=== PATIENT | male | born 1955 | race Caucasian/White ===

== ENCOUNTER 2025-03-14 14:17 | Emergency (ER) | payer SELFPAY ==
[~2025-03-14] VITALS: Ht 177.8 cm; Wt 81.0 kg
[2025-03-14 14:19] VITALS: O2SAT 98
[2025-03-14 15:58] LABS: CHLORIDE 101 mEq/L (98-107); POTASSIUM 2.9 mEq/L (3.5-5.1); SODIUM 137 mEq/L (136-145)
[2025-03-14 16:00] LABS: CALCIUM 8.6 mg/dL (8.7-10.4); CARBON DIOXIDE 25 mEq/L (21-32)
[2025-03-14] MEDS: HALOPERIDOL LACTATE 5MG/ML VIAL IM ONE (16:02)
[2025-03-14 16:05] LABS: CREATININE 1.5 mg/dL (0.6-1.3); ETHANOL BLOOD 300 mg/dL (<10); GLUCOSE 171 mg/dL (70-105); UREA NITROGEN BLOOD 10 mg/dL (9-23)
[2025-03-14 16:06] LABS: ALANINE AMINOTRANSFERASE 60 IU/L (10-49); ALBUMIN 4.1 g/dL (3.2-4.8); ASPARTATE AMINOTRANSFERASE 118 IU/L (<34)
[2025-03-14 16:07] LABS: BILIRUBIN DIRECT 0.2 mg/dL (<=3.0); BILIRUBIN TOTAL 0.4 mg/dL (0.1-1.0); PROTEIN TOTAL 7.5 g/dL (6.0-8.3)
[2025-03-14 16:11] LABS: BASOPHILS % 0.6 % (0.0-2.0); EOSINOPHILS % 1.7 % (0.0-5.0); HEMATOCRIT. 39.1 % (42.0-52.0); HEMOGLOBIN. 13.1 g/dL (14.0-18.0); LYMPHOCYTES % 45.7 % (20.0-50.0); MEAN CORPUSCULAR HGB CONC 33.5 g/dL (31.0-37.0); MEAN CORPUSCULAR VOLUME 95.6 fL (80.0-94.0); MONOCYTES % 8.6 % (2.0-8.0); NEUTROPHILS % 43.4 % (40.0-76.0); PLATELET 188 x1000/uL (130-400); RED BLOOD CELL COUNT 4.09 mill/uL (4.7-6.1); WHITE BLOOD COUNT 5.2 x1000/uL (4.5-11.0)
[2025-03-14 16:33] VITALS: TEMP 36.5
[2025-03-14 18:41] LABS: *AMPHETAMINES SCREEN URINE NEGATIVE (NEGATIVE); *BENZODIAZEPINES SCREEN URINE NEGATIVE (NEGATIVE)
[2025-03-14 18:42] LABS: *BARBITURATES SCREEN URINE NEGATIVE (NEGATIVE); *COCAINE SCREEN URINE NEGATIVE (NEGATIVE); CANNABINOID URINE SCREEN NEGATIVE (NEGATIVE); ECSTASY MDMA SCREEN URINE NEGATIVE (NEGATIVE); METHADONE URINE SCREEN NEGATIVE (NEGATIVE); OPIATES URINE SCREEN NEGATIVE (NEGATIVE); PHENCYCLIDINE URINE SCREEN NEGATIVE (NEGATIVE)
[2025-03-14 21:54] VITALS: BP 177/87; PULSE 80; RESP 18; O2SAT 95
[2025-03-14] MEDS: POTASSIUM CHLORIDE 20MEQ TABLET SR PO ONE (22:07)
== END 2025-03-14 22:17 | disposition home or self-care (01) ==
LOC: ER 14:17
DX: S00.91XA Abrasion of unspecified part of head, initial encounter (principal); F10.10 Alcohol abuse, uncomplicated; E87.6 Hypokalemia; E11.9 Type 2 diabetes mellitus without complications; R51.9 Headache, unspecified; W19.XXXA Unspecified fall, initial encounter; Y93.89 Activity, other specified; Y92.89 Other specified places as the place of occurrence of the external cause; Y99.8 Other external cause status; Y90.8 Blood alcohol level of 240 mg/100 ml or more
CPT/HCPCS: 80076; 80305; 80048; 80320; 85025; 36415; 70450; 96372; 99285; J1630; G0480

== ENCOUNTER 2025-03-26 20:28 | Inpatient (IN) | payer OTHER ==
[~2025-03-26] VITALS: Ht 175.3 cm; Wt 83.0 kg
[2025-03-26 21:23] LABS: HEMATOCRIT 38.3 % (42.0-52.0); HEMOGLOBIN 12.8 g/dL (14.0-18.0); MEAN CORPUSCULAR HEMOGLOBIN 32.6 pg (28.0-32.0); MEAN CORPUSCULAR HGB CONC 33.4 g/dL (31.0-37.0); MEAN CORPUSCULAR VOLUME 97.7 fL (80.0-94.0); PLATELET 244 x1000/uL (130-400); RED BLOOD CELL COUNT 3.92 mill/uL (4.7-6.1); RED CELL DISTRIBUTION WIDTH 16.2 % (11.6-14.6); WHITE BLOOD COUNT 5.5 x1000/uL (4.5-11.0)
[2025-03-26 21:30] LABS: POTASSIUM 3.7 mEq/L (3.5-5.1)
[2025-03-26 21:32] LABS: CALCIUM 8.5 mg/dL (8.7-10.4)
[2025-03-26 21:36] LABS: CREATININE 1.4 mg/dL (0.6-1.3)
[2025-03-26] MEDS: SODIUM CHLORIDE 0.9% 1,000 ML IV ONE (21:52)
[2025-03-27] VITALS (7 sets, daily range): BP systolic 152–198; BP diastolic 68–102; PULSE 78–117; RESP 19–20; TEMP 36.2–37.8; O2SAT 95–99
[2025-03-27] MEDS ORDERED: IPRATROPIUM/ALBUTEROL 0.5-3(2.5)MG/3ML NEB HHN PRN (00:30)
[2025-03-27] MEDS ORDERED: HYDRALAZINE 20MG/ML VIAL IV PRN (00:30)
[2025-03-27] MEDS ORDERED: GUAIFENESIN 200MG/10ML SUGAR FREE UDC PO PRN (00:30)
[2025-03-27] MEDS ORDERED: ONDANSETRON HCL 4MG/2ML INJ IV PRN (00:30)
[2025-03-27] MEDS ORDERED: LORAZEPAM 2MG/ML INJ IV PRN (00:30)
[2025-03-27] MEDS ORDERED: ACETAMINOPHEN 325MG TABLET PO PRN (00:30)
[2025-03-27] MEDS ORDERED: MAGNESIUM/ALUMINUM HYDROXIDE/SIMETHICONE 30ML UDC PO PRN (00:30)
[2025-03-27] MEDS ORDERED: DOCUSATE SODIUM 100MG CAPSULE PO PRN (00:30)
[2025-03-27] MEDS ORDERED: DEXTROSE 50% WATER 50ML SYRINGE IV PRN (00:45)
[2025-03-27] MEDS ORDERED: HYDRALAZINE 10 MG in SODIUM CHLORIDE 0.9% 49.5 ML IV PRN (00:45)
[2025-03-27] MEDS ORDERED: LORAZEPAM 2MG/ML UD SYRINGE IV PRN (00:45)
[2025-03-27] MEDS: MVI, ADULT NO.1 10 ML, FOLIC ACID 1 MG, THIAMINE HCL 100 MG in SODIUM CHLORIDE 0.9% 1,0... IV SCH (02:13)
[2025-03-27 06:23] LABS: TROPONIN I HIGH SENSITIVITY 16 ng/L (3.0-53)
[2025-03-27] MEDS: BLOOD SUGAR DIAGNOSTIC STRIP TEST SCH (06:26)
[2025-03-27 06:27] LABS: CREATINE KINASE 245 IU/L (46-171); PHOSPHORUS 2.7 mg/dL (2.5-4.9)
[2025-03-27] MEDS: INSULIN LISPRO 100 UNITS/ML SUBCUT SCH (07:40)
[2025-03-27] MEDS ORDERED: LORAZEPAM 1MG TABLET PO PRN ×2 (08:00)
[2025-03-27] MEDS ORDERED: CHLORDIAZEPOXIDE 25MG CAPSULE PO PRN ×2 (08:00)
[2025-03-27] MEDS ORDERED: PHENOBARBITAL 30 MG TABLET PO PRN ×3 (08:00→10:00)
[2025-03-27] MEDS ORDERED: FOLIC ACID 1MG TABLET PO SCH (09:00)
[2025-03-27] MEDS: SODIUM CHLORIDE 0.9% 500 ML IV ONE (09:00)
[2025-03-27] MEDS: PANTOPRAZOLE SODIUM 40 MG/VIAL IV SCH (09:32)
[2025-03-27] MEDS: CLONIDINE 0.1MG TABLET PO PRN (09:33)
[2025-03-27] MEDS: THIAMINE HCL 100MG TABLET PO SCH (09:33)
[2025-03-27] MEDS ORDERED: PHENOBARBITAL 60MG TABLET PO PRN (10:00)
[2025-03-27] MEDS: THIAMINE HCL 100 MG/1 ML 2ML VIAL IM SCH (10:41)
[2025-03-27] MEDS: MAGNESIUM 4 G PREMIX 100 ML IV NR (12:27)
[2025-03-27] MEDS: AMLODIPINE 10MG TABLET PO SCH (12:27)
[2025-03-27] MEDS: CHLORDIAZEPOXIDE 25MG CAPSULE PO PRN (18:55)
[2025-03-27] MEDS: LORAZEPAM 1MG TABLET PO PRN (18:55)
[2025-03-27 22:43] LABS: ALANINE AMINOTRANSFERASE 56 IU/L (10-49); ALBUMIN 3.7 g/dL (3.2-4.8); ASPARTATE AMINOTRANSFERASE 70 IU/L (<34); BILIRUBIN DIRECT 0.3 mg/dL (<=3.0); BILIRUBIN TOTAL 0.8 mg/dL (0.1-1.0); CREATINE KINASE 352 IU/L (46-171); PROTEIN TOTAL 6.8 g/dL (6.0-8.3); TROPONIN I HIGH SENSITIVITY 19 ng/L (3.0-53)
[2025-03-28] VITALS: BP 146/84; PULSE 85; RESP 20; TEMP 36.7; O2SAT 95
[2025-03-28 04:00] VITALS: BP 167/82; PULSE 69; RESP 20; TEMP 38; O2SAT 97
[2025-03-28] MEDS: ACETAMINOPHEN 325MG TABLET PO PRN (04:20)
[2025-03-28 06:42] LABS: BASOPHILS % 0.3 % (0.0-2.0); CHLORIDE 105 mEq/L (98-107); EOSINOPHILS % 0.5 % (0.0-5.0); HEMATOCRIT. 33.7 % (42.0-52.0); HEMOGLOBIN. 11.4 g/dL (14.0-18.0); LYMPHOCYTES % 21.2 % (20.0-50.0); MEAN CORPUSCULAR HEMOGLOBIN 32.5 pg (28.0-32.0); MEAN CORPUSCULAR HGB CONC 33.7 g/dL (31.0-37.0); MEAN CORPUSCULAR VOLUME 96.7 fL (80.0-94.0); MEAN PLATELET VOLUME 8.8 fl (7.4-10.4); MONOCYTES % 7.1 % (2.0-8.0); NEUTROPHILS % 70.9 % (40.0-76.0); PLATELET 172 x1000/uL (130-400); POTASSIUM 3.5 mEq/L (3.5-5.1); RED BLOOD CELL COUNT 3.49 mill/uL (4.7-6.1); RED CELL DISTRIBUTION WIDTH 15.7 % (11.6-14.6); SODIUM 140 mEq/L (136-145); WHITE BLOOD COUNT 5.4 x1000/uL (4.5-11.0)
[2025-03-28 06:43] LABS: CALCIUM 8.2 mg/dL (8.7-10.4); CARBON DIOXIDE 26 mEq/L (21-32)
[2025-03-28 06:47] LABS: TRIGLYCERIDE 81 mg/dL (0-150)
[2025-03-28 06:48] LABS: CREATININE 1.2 mg/dL (0.6-1.3); GLUCOSE 146 mg/dL (70-105); UREA NITROGEN BLOOD 14 mg/dL (9-23)
[2025-03-28 06:49] LABS: ALANINE AMINOTRANSFERASE 48 IU/L (10-49); ASPARTATE AMINOTRANSFERASE 60 IU/L (<34); LDL CHOLESTEROL 68 mg/dL (5-100)
[2025-03-28 06:50] LABS: ALBUMIN 3.9 g/dL (3.2-4.8); BILIRUBIN DIRECT 0.4 mg/dL (<=3.0); BILIRUBIN TOTAL 1.2 mg/dL (0.1-1.0); CHOLESTEROL 163 mg/dL (<200); HDL CHOLESTEROL 75 mg/dL (>55); PROTEIN TOTAL 6.6 g/dL (6.0-8.3)
[2025-03-28 08:00] VITALS: BP 142/77; PULSE 61; RESP 18; TEMP 36.2; O2SAT 97
[2025-03-28] MEDS: FOLIC ACID 1MG TABLET PO SCH (08:30)
[2025-03-28] MEDS: MULTIVITAMINS,THER W-MINERALS TABLET PO SCH (08:31)
[2025-03-28 12:00] VITALS: BP 153/68; PULSE 70; RESP 18; TEMP 36.8; O2SAT 96
[2025-03-28] MEDS ORDERED: AMLO10TA80 PO (12:02)
[2025-03-28] MEDS ORDERED: FOLI-43 PO (12:02)
[2025-03-28 14:13] VITALS: BP 153/68; PULSE 70; TEMP 98.2; O2SAT 96
[2025-03-29] MEDS ORDERED: THIAMINE HCL 100MG TABLET PO SCH (09:00)
== END 2025-03-28 15:38 | disposition home or self-care (01) | DRG 92 ==
LOC: ER 20:28 → 6EST 22:59 → EDBEDREQ 23:07 → ENRESERV 23:15
PROVIDERS: ADMIT Internal Medicine; ATTEND Internal Medicine
DX: G92.8 Other toxic encephalopathy (principal); N17.9 Acute kidney failure, unspecified; E86.0 Dehydration; D53.9 Nutritional anemia, unspecified; F10.129 Alcohol abuse with intoxication, unspecified; E11.9 Type 2 diabetes mellitus without complications; I16.0 Hypertensive urgency; S09.90XA Unspecified injury of head, initial encounter; I10 Essential (primary) hypertension; Z79.899 Other long term (current) drug therapy; Z86.73 Personal history of transient ischemic attack (TIA), and cerebral infarction without residual deficits; Y90.8 Blood alcohol level of 240 mg/100 ml or more; W18.30XA Fall on same level, unspecified, initial encounter; Y93.89 Activity, other specified; Y92.89 Other specified places as the place of occurrence of the external cause; Y99.8 Other external cause status
CPT/HCPCS: 36415; 80048; 80061; 80076; 80320; 82550; 82962; 83036; 83735; 84100; 84484; 85025; 85027; 97166; 97530; 99285; A4606; J1815; J2470; J3411; J3475; J3490; J7030; G0480

== ENCOUNTER 2025-03-30 12:06 | Emergency (ER) | payer OTHER ==
[~2025-03-30] VITALS: Ht 177.8 cm; Wt 114.0 kg
[~2025-03-30 12:06] MED LIST: AMLO10TA80 PO; FOLI-43 PO
[2025-03-30 12:13] VITALS: O2SAT 96
[2025-03-30 13:05] LABS: BASOPHILS % 0.3 % (0.0-2.0); EOSINOPHILS % 0.9 % (0.0-5.0); HEMATOCRIT. 31.8 % (42.0-52.0); HEMOGLOBIN. 10.7 g/dL (14.0-18.0); MEAN CORPUSCULAR HEMOGLOBIN 32.5 pg (28.0-32.0); MEAN CORPUSCULAR HGB CONC 33.6 g/dL (31.0-37.0); MEAN CORPUSCULAR VOLUME 96.6 fL (80.0-94.0); MONOCYTES % 5.2 % (2.0-8.0); NEUTROPHILS % 58.6 % (40.0-76.0); PLATELET 189 x1000/uL (130-400); RED BLOOD CELL COUNT 3.29 mill/uL (4.7-6.1); RED CELL DISTRIBUTION WIDTH 14.8 % (11.6-14.6); WHITE BLOOD COUNT 5.4 x1000/uL (4.5-11.0)
[2025-03-30 13:11] LABS: POTASSIUM 3.2 mEq/L (3.5-5.1)
[2025-03-30 13:12] LABS: CALCIUM 7.7 mg/dL (8.7-10.4)
[2025-03-30 13:52] LABS: CREATININE 1.7 mg/dL (0.6-1.3)
[2025-03-30] MEDS: DIPHENHYDRAMINE 50MG/ML VIAL IV ONE (14:15)
[2025-03-30] MEDS: SODIUM CHLORIDE 0.9% 1,000 ML IV ONE (14:15)
[2025-03-30] MEDS: LORAZEPAM 2MG/ML INJ IV ONE (14:15)
[2025-03-30] MEDS: HALOPERIDOL LACTATE 5MG/ML VIAL IM ONE (14:16)
[2025-03-30] MEDS: DIPHENHYDRAMINE 50MG/ML VIAL IM ONE (16:00)
[2025-03-30] MEDS ORDERED: LORAZEPAM 2MG/ML INJ IM ONE (16:00)
[2025-03-30] MEDS: LORAZEPAM 2MG/ML UD SYRINGE IM NR (16:04)
[2025-03-30 16:21] LABS: *AMPHETAMINES SCREEN URINE NEGATIVE (NEGATIVE); *BARBITURATES SCREEN URINE NEGATIVE (NEGATIVE); *BENZODIAZEPINES SCREEN URINE PRESUMPTIVE POSITIVE (NEGATIVE); *COCAINE SCREEN URINE NEGATIVE (NEGATIVE); CANNABINOID URINE SCREEN NEGATIVE (NEGATIVE); ECSTASY MDMA SCREEN URINE NEGATIVE (NEGATIVE); METHADONE URINE SCREEN NEGATIVE (NEGATIVE); OPIATES URINE SCREEN NEGATIVE (NEGATIVE); PHENCYCLIDINE URINE SCREEN NEGATIVE (NEGATIVE)
[2025-03-30 17:21] VITALS: BP 128/64; PULSE 70; RESP 18; TEMP 37; O2SAT 96
== END 2025-03-30 17:39 | disposition short-term general hospital (02) ==
LOC: ER 12:06 → CANBEDREQ 15:27 → ER 17:39
DX: F10.129 Alcohol abuse with intoxication, unspecified (principal); R45.1 Restlessness and agitation; I10 Essential (primary) hypertension; E11.9 Type 2 diabetes mellitus without complications; Z79.899 Other long term (current) drug therapy; Y90.8 Blood alcohol level of 240 mg/100 ml or more
CPT/HCPCS: 80305; 80048; 80320; 85025; 36415; 70450; 96372; 99291; J1630; J2060; J7030; J1200; G0480